=== PATIENT | female | born 1980 | race Caucasian/White ===

== ENCOUNTER 2018-03-22 19:51 | Emergency (ER) | payer BC, MEDICAID ==
[~2018-03-22] VITALS: Ht 162.6 cm; Wt 70.3 kg
[2018-03-22 19:58] VITALS: BP 101/55
== END 2018-03-22 20:44 | disposition home or self-care (01) ==
LOC: ER 19:59
DX: R07.2 Precordial pain (principal)
CPT/HCPCS: A4606; Z7610

== ENCOUNTER 2019-05-12 07:26 | Emergency (ER) | payer MEDICAID ==
[~2019-05-12] VITALS: Ht 162.6 cm; Wt 74.4 kg
--- NOTE | 2019-05-12 07:27 | NUR ---
CAME IN FOR ABDOMINAL PAIN AND MULTIPLE BRUISE TO ABDOMEN S/P ABDOMINOPLASTY x 1WK AGO, SUTURE CLEAN AND INTACT, NOTED W [employer] JEN CHÁVEZ DRAINING DARK RED FLUID. TO ER BED 7, HOOKED TO MONITOR, CHANGED TO GOWN, AWAITING MD YADAV.
--- NOTE | 2019-05-12 07:56 | NUR ---
DR GONZALEZ AT BEDSIDE
[2019-05-12] MEDS ORDERED: IV NS 0.9% 1,000 ML BAG IV ONE (08:00)
--- NOTE | 2019-05-12 08:07 | NUR ---
PT SIGNED WAIVER FORM. LMP MARCH 16, PT STATED SHE HAS IRREGULAR MENSTRUATION
[2019-05-12 08:10] LABS: BASOPHILS % (AUTO) 0.3 % (0.0-2.0); EOSINOPHILS % (AUTO) 1.8 % (0.0-6.0); HEMATOCRIT 26 % (33-45); HEMOGLOBIN 8.8 g/dL (11.5-14.8); LYMPHOCYTES # (AUTO) 1.9 /CMM (0.8-4.8); LYMPHOCYTES % (AUTO) 16.3 % (20.0-44.0); MEAN CORPUSCULAR HGB CONC 33 g/dl (31.0-36.0); MEAN CORPUSCULAR VOLUME 90 fL (82-100); MONOCYTES # (AUTO) 0.7 /CMM (0.1-1.30); MONOCYTES % (AUTO) 5.8 % (2.0-12.0); NEUTROPHILS # (AUTO) 8.8 /CMM (1.8-8.9); NEUTROPHILS % (AUTO) 75.8 % (43.0-81.0); PLATELET COUNT (AUTO) 371 /CMM (150-450); RED BLOOD CELL COUNT(AUTO) 2.93 MIL/uL (4.0-5.2); WHITE BLOOD COUNT (AUTO) 11.6 K/uL (4.3-11.0)
[2019-05-12 08:16] LABS: CALCIUM, SERUM 8.3 mg/dL (8.5-10.1); CREATININE 0.6 mg/dL (0.6-1.3); POTASSIUM 3.5 mmol/L (3.5-5.1)
[2019-05-12 08:22] LABS: ALBUMIN 3.1 g/dL (3.4-5.0); BILIRUBIN,DIRECT 0.1 mg/dL (0.0-0.2); BILIRUBIN,TOTAL 0.7 mg/dL (0.2-1.0); TOTAL PROTEIN, SERUM 6.7 g/dL (6.4-8.2)
[2019-05-12 09:06] LABS: BAND % (MANUAL) 4 % (0.0-5.0); EOSINOPHILS % (MANUAL) 3 % (0-4); LYMPHOCYTES % (MANUAL) 16 % (16-48); METAMYELOCYTES % 1 % (0-0); MONOCYTES % (MANUAL) 7 % (0-11.0); MYELOCYTES % 1 % (0-0); NEUTROPHILS % (MANUAL) 68 (42-76)
--- NOTE | 2019-05-12 09:20 | NUR ---
DR. NABIL BOSS PAGED AT [phone]. AWAITING FOR CALL BACK. PRIMARY NURSE AWARE.
--- NOTE | 2019-05-12 09:22 | NUR ---
DR. NABIL BOSS CALLED BACK, TRANSFERRED CALL TO DR. GONZALEZ.
--- NOTE | 2019-05-12 09:50 | NUR ---
IV removed. Catheter intact and site benign. Pressure and 4x4 applied to site. No bleeding noted.Patient discharged to home in stable condition. Written and verbal after care instructions given. Patient verbalizes understanding of instruction.
[2019-05-12 09:55] VITALS: BP 132/71
== END 2019-05-12 09:50 | disposition home or self-care (01) ==
LOC: ER 07:28
DX: G89.18 Other acute postprocedural pain (principal); R10.9 Unspecified abdominal pain; R06.02 Shortness of breath
CPT/HCPCS: 36415; 74177; 80048; 80076; 85025; 85730; 86850; 99284; J7030

== ENCOUNTER 2025-04-12 03:37 | Emergency (ER) | payer MEDICAID ==
[~2025-04-12] VITALS: Ht 162.6 cm; Wt 77.1 kg
[2025-04-12] MEDS ORDERED: MAG HYDROX/AL HYDROX/SIMETH 30 ML UDC ONE (04:06)
[2025-04-12] MEDS ORDERED: LIDOCAINE VISCOUS 2% UD 15 ML UDC ONE (04:06)
[2025-04-12 04:08] LABS: BASOPHILS % (AUTO) 0.5 % (0.0-2.0); EOSINOPHILS # (AUTO) 0.1 K/uL (0.0-0.7); EOSINOPHILS % (AUTO) 1.8 % (0.0-6.0); HEMATOCRIT 40 % (33-45); HEMOGLOBIN 13.3 g/dL (11.5-14.8); LYMPHOCYTES # (AUTO) 2.1 K/uL (0.8-4.8); LYMPHOCYTES % (AUTO) 40.5 % (20.0-44.0); MEAN CORPUSCULAR HEMOGLOBIN 28 PG (26.0-33.0); MEAN CORPUSCULAR HGB CONC 34 g/dl (31.0-36.0); MEAN CORPUSCULAR VOLUME 82 fL (82-100); MONOCYTES # (AUTO) 0.3 K/uL (0.1-1.30); NEUTROPHILS # (AUTO) 2.6 K/uL (1.8-8.9); NEUTROPHILS % (AUTO) 51.2 % (43.0-81.0); PLATELET COUNT (AUTO) 225 K/uL (150-450); RED BLOOD CELL COUNT(AUTO) 4.82 MIL/uL (4.0-5.2); RED CELL DISTRIBUTION WIDTH 13.9 % (11.5-15.0); WHITE BLOOD COUNT (AUTO) 5.1 K/uL (4.3-11.0)
[2025-04-12] MEDS: MAG HYDROX/AL HYDROX/SIMETH 30 ML UDC PO ONE (04:10)
[2025-04-12] MEDS: LIDOCAINE VISCOUS 2% UD 15 ML UDC MM ONE (04:10)
[2025-04-12 04:15] LABS: CALCIUM, SERUM 9.4 mg/dL (8.5-10.1); CARBON DIOXIDE 30 mmol/L (21-32); CHLORIDE 104 mmol/L (98-107); CREATININE 0.5 mg/dL (0.6-1.3); GLUCOSE 102 mg/dL (74-106); POTASSIUM 3.7 mmol/L (3.5-5.1); SODIUM SERUM 139 mmol/L (136-145); UREA NITROGEN, BLOOD 15 mg/dL (7-18)
[2025-04-12 04:23] LABS: ALANINE AMINOTRANSFERASE 49 U/L (12-78); ALBUMIN 3.9 g/dL (3.4-5.0); ALKALINE PHOSPHATASE 69 U/L (46-116); ASPARTATE AMINOTRANSFERASE 23 U/L (15-37); BILIRUBIN,DIRECT 0.1 mg/dL (0.0-0.2); BILIRUBIN,TOTAL 0.6 mg/dL (0.2-1.0); TOTAL PROTEIN, SERUM 7.9 g/dL (6.4-8.2)
[2025-04-12 04:47] VITALS: BP 135/89; TEMP 98.4; O2SAT 98
== END 2025-04-12 04:47 | disposition home or self-care (01) ==
LOC: ER 03:40
DX: R07.9 Chest pain, unspecified (principal)
CPT/HCPCS: 36415; 71045-TC; 80048-TC; 80076-TC; 84484-TC; 85025-TC